=== PATIENT | male | born 1960 | race Caucasian/White ===

== ENCOUNTER 2018-08-30 11:36 | Inpatient (IN) | payer OTHER ==
[~2018-08-30] VITALS: Ht 177.8 cm; Wt 82.6 kg
[~2018-08-30 11:36] MED LIST: AMLO5TAB4 PO; FENO145T32 PO; FURO-93 PO; LISI-167 PO; LISI1TAB5 PO; OMEP-110 PO; POTA10TA6 PO
--- NOTE | 2018-08-30 12:28 | NUR ---
PT CANT SIT UP FOR LATERAL- TOO DIZZY/ PLS CHG TO PORTABLE 1 VIEW
[2018-08-30 12:29] LABS: BASOPHILS # (AUTO) 0.09 x10^3/uL (0-0.1); BASOPHILS % (AUTO) 3 % (0-1); EOSINOPHILS # (AUTO) 0.03 x10^3/uL (0-0.4); EOSINOPHILS % (AUTO) 1 % (1-7); LYMPHOCYTES # (AUTO) 0.78 x10^3/uL (1-3.4); LYMPHOCYTES % (AUTO) 26 % (22-44); MD NO; MEAN CORPUSCULAR HEMOGLOBIN 34.7 pg (27.5-34.5); MEAN CORPUSCULAR HGB CONC 34.1 g/dL (33.2-36.2); MEAN CORPUSCULAR VOLUME 101.9 fL (81-97); MEAN PLATELET VOLUME 7.6 fL (7.4-10.4); MONOCYTES # (AUTO) 0.49 x10^3/uL (0.2-0.8); MONOCYTES % (AUTO) 16 % (2-9); NEUTROPHILS # (AUTO) 1.62 x10^3/uL (1.8-6.8); NEUTROPHILS % (AUTO) 54 % (42-75); PLATELET COUNT 123 x10^3/uL (130-400); RED BLOOD COUNT 3.97 x10^6/uL (4.38-5.82); RED CELL DISTRIBUTION WIDTH 13.9 % (9.4-14.8)
--- NOTE | 2018-08-30 12:31 | NUR ---
PATIENT PRESENTS TO ED TODAY FOR DIZZINESS, MULTIPLE FALLS, AND LOW BP 69/22. COMPLIANT WITH BP MEDS, NO RECENT CHANGE TO MEDS. PATIENT ALSO C/O CP STARTING THIS AM. ERP AT BEDSIDE, PATIENT REPORTS DRINKING 2 BEERS DAILY, LAST DRINK LAST NIGHT (2 BEERS). BUILDING INSPECTOR ON PATIENT. AWAITING FURTHER ORDERS. CALL LIGHT WITHIN REACH, MOTHER AT BEDSIDE.
[2018-08-30 12:39] LABS: ALANINE AMINOTRANSFERASE 79 U/L (12-78); ALBUMIN 4.7 g/dL (3.4-5.0); ANION GAP 16 mmol/L (5-15); CALCIUM 9.3 mg/dL (8.5-10.1); CHLORIDE 88 mmol/L (98-107); CREATININE 1.61 mg/dL (0.7-1.3)
[2018-08-30 12:43] LABS: ALKALINE PHOSPHATASE 41 U/L (45-117); BILIRUBIN,TOTAL 1.1 mg/dL (0.2-1.0); TOTAL PROTEIN 8.6 g/dL (6.4-8.2); TROPONIN I < 0.015 ng/mL (0.000-0.045)
[2018-08-30] MEDS ORDERED: HIGH CHOL (12:43)
[2018-08-30] MEDS ORDERED: LISI1TAB7 PO (12:43)
[2018-08-30] MEDS ORDERED: THIAMINE 100MG TABLET ONE (12:53)
[2018-08-30] MEDS ORDERED: LORazepam 2 MG/ML, 1ML ONE ×2 (12:54→14:28)
[2018-08-30] MEDS ORDERED: THIAMINE 100MG TABLET PO ONE (13:00)
[2018-08-30] MEDS ORDERED: SODIUM CHLORIDE FLUSH 10ML SYR IVF ONE (13:00)
[2018-08-30] MEDS: LORazepam 2 MG/ML, 1ML IVPush PRN ×3 (13:02→20:55)
[2018-08-30] MEDS ORDERED: POTASSIUM CHLORIDE 20 MEQ TAB.ER.PRT ONE (13:04)
--- NOTE | 2018-08-30 13:13 | NUR ---
PATIENT ASSISTED WITH URINAL, UNABLE TO URINATE AT THIS TIME FOR UA.
[2018-08-30] MEDS ORDERED: POTASSIUM CHLORIDE 20 MEQ TAB.ER.PRT PO ONE (13:30)
--- NOTE | 2018-08-30 14:04 | NUR ---
UA COLLECTED AND SENT TO LAB, ADMIT ORDERS IN, AWAITING BED ASSIGNMENT. PATIENT RESTING IN [facility] COMFORTABLY, A+OX4, NO ADDITIONAL NEEDS AT THIS TIME.
[2018-08-30 14:19] LABS: MICROSCOPIC AUTO
[2018-08-30 14:24] LABS: CULTURE INDICATED? NO
--- NOTE | 2018-08-30 14:42 | NUR ---
PATIENT ASSISTED TO BEDSIDE COMMODE, 1 ASSIST, LARGE BROWN BM NOTED. PATIENT BACK TO BED, INCREASED ANXIETY/TREMORS, ATIVAN ADMINISTERED PER ORDER. NADN. PATIENT SITTING IN GURNEY. AWAITING BED ASSIGNMENT.
[2018-08-30] MEDS ORDERED: FUROSEMIDE 40 MG/4 ML ONE (15:30)
[2018-08-30] MEDS ORDERED: MAGNESIUM SULFATE PMX 4GM/100M 100 ML IV ONE (15:30)
[2018-08-30] MEDS ORDERED: ONDANSETRON 2MG/ML, 2ML IVPush PRN (15:30)
[2018-08-30] MEDS ORDERED: hydrALAzine 20 MG/ML, 1ML IVPush PRN (15:30)
[2018-08-30] MEDS ORDERED: FUROSEMIDE 40 MG/4 ML IV ONE (15:30)
[2018-08-30] MEDS ORDERED: morphine SULFATE 10 MG/ML, 1ML IVPush PRN (15:30)
[2018-08-30] MEDS: SODIUM CHLORIDE 0.9% 1,000 ML IV SCH (15:45)
--- NOTE | 2018-08-30 15:51 | NUR ---
TASK RN: DR CARREON ORDERED 40MG LASIX IVP. PTS K = 2.8, CXR INDICATES NO CARDIOPULMANRY DESEASE. DISCUSSED LASIX ORDER WITH . LASIX GIVEN TO HELP INCREASE SODIUM LEVEL WHICH IS CURRENTLY 128. PT WILL ALSO RECIEVE NS IV MAINTENANCE 100ML/HR. PER DR CARREON OK TO GIVE LASIX. PT MED ORDERED. IVF NS INFUSING AT 100ML/HR W/O DIFFICULTY.
--- NOTE | 2018-08-30 15:55 | NUR ---
CALL LIGHT W/I REACH, URINAL AT BEDSIDE. K+ AND MAGNESSIUM ORDER SENT TO PHARM.
[2018-08-30 16:17] LABS: MEAN CORPUSCULAR HEMOGLOBIN 35.1 pg (27.5-34.5); MEAN CORPUSCULAR HGB CONC 34.2 g/dL (33.2-36.2); MEAN CORPUSCULAR VOLUME 102.6 fL (81-97); MEAN PLATELET VOLUME 7.9 fL (7.4-10.4); PLATELET COUNT 116 x10^3/uL (130-400); RED BLOOD COUNT 3.95 x10^6/uL (4.38-5.82); RED CELL DISTRIBUTION WIDTH 13.7 % (9.4-14.8)
--- NOTE | 2018-08-30 16:22 | NUR ---
REPORT TO ASHLY VICK.
[2018-08-30 16:45] LABS: MD SCAN
[2018-08-30 16:46] LABS: BASOPHILS # (AUTO) 0.05 x10^3/uL (0-0.1); BASOPHILS % (AUTO) 1 % (0-1); EOSINOPHILS # (AUTO) 0.02 x10^3/uL (0-0.4); EOSINOPHILS % (AUTO) 1 % (1-7); LYMPHOCYTES # (AUTO) 0.67 x10^3/uL (1-3.4); LYMPHOCYTES % (AUTO) 20 % (22-44); MONOCYTES # (AUTO) 0.64 x10^3/uL (0.2-0.8); MONOCYTES % (AUTO) 19 % (2-9); NEUTROPHILS # (AUTO) 1.95 x10^3/uL (1.8-6.8); NEUTROPHILS % (AUTO) 59 % (42-75)
--- NOTE | 2018-08-30 16:47 | NUR ---
ROOM NOT READY AT THIS TIME. AWAITING ROOM TO BE READY PRIOR TO TRANSPORT UPSTAIRS.
[2018-08-30 17:39] VITALS: BP 131/89
[2018-08-30] MEDS: POTASSIUM CHLORIDE 40 MEQ in SODIUM CHLORIDE 0.9% 500 ML IV SCH ×2 (18:00→22:28)
[2018-08-30 18:04] VITALS: BP 130/87
[2018-08-30 19:01] LABS: TROPONIN I < 0.015 ng/mL (0.000-0.045)
[2018-08-30 19:25] VITALS: BP 127/85
[2018-08-30 19:28] VITALS: BP 127/88
[2018-08-30 19:30] VITALS: BP 95/67
[2018-08-30] MEDS: PANTOPRAZOLE 40 MG IV IVPush SCH (20:55)
[2018-08-31 01:03] LABS: TROPONIN I < 0.015 ng/mL (0.000-0.045)
[2018-08-31] MEDS: SODIUM CHLORIDE 0.9% 1,000 ML IV SCH ×2 (01:04→19:21)
[2018-08-31 03:55] VITALS: BP 144/95
[2018-08-31 05:25] LABS: ANION GAP 8 mmol/L (5-15); CALCIUM 8.6 mg/dL (8.5-10.1); CHLORIDE 97 mmol/L (98-107)
[2018-08-31 05:53] LABS: ALANINE AMINOTRANSFERASE 61 U/L (12-78); ALKALINE PHOSPHATASE 34 U/L (45-117); BILIRUBIN,TOTAL 1.3 mg/dL (0.2-1.0); CREATININE 1.44 mg/dL (0.7-1.3); TOTAL PROTEIN 7.4 g/dL (6.4-8.2)
[2018-08-31 07:20] VITALS: BP 149/90
[2018-08-31] MEDS: PANTOPRAZOLE 40 MG IV IVPush SCH ×2 (08:43→20:45)
[2018-08-31] MEDS ORDERED: POTASSIUM PHOSPHATE 22 MEQ in SODIUM CHLORIDE 0.9% 500 ML IV ONE (09:00)
[2018-08-31 13:30] VITALS: BP 161/99
[2018-08-31 20:31] VITALS: BP 146/99
[2018-09-01 02:13] VITALS: BP 149/99
[2018-09-01 02:36] LABS: CLOSTRIDIUM DIFFICILE ANTIGEN NEGATIVE; CLOSTRIDIUM DIFFICILE TOXIN NEGATIVE (Negative)
[2018-09-01] MEDS: SODIUM CHLORIDE 0.9% 1,000 ML IV SCH (05:16)
[2018-09-01 05:21] LABS: ANION GAP 9 mmol/L (5-15); CALCIUM 7.9 mg/dL (8.5-10.1); CHLORIDE 102 mmol/L (98-107)
[2018-09-01 05:23] LABS: CREATININE 1.11 mg/dL (0.7-1.3)
[2018-09-01] MEDS: PANTOPRAZOLE 40 MG IV IVPush SCH ×2 (08:17→20:35)
[2018-09-01] MEDS: LORazepam 2 MG/ML, 1ML IVPush PRN (08:17)
[2018-09-01 08:50] VITALS: BP 143/93
[2018-09-01] MEDS: MULTIVITAMIN 1 TABLET PO SCH (09:34)
[2018-09-01] MEDS: THIAMINE 100MG TABLET PO SCH (09:34)
[2018-09-01] MEDS: FOLIC ACID 1 MG TABLET PO SCH (09:34)
[2018-09-01] MEDS: MAGNESIUM OXIDE 400 MG TABLET PO SCH ×2 (09:34→20:35)
[2018-09-01 13:30] VITALS: BP 134/83
[2018-09-01] MEDS ORDERED: HALOPERIDOL 5 MG/ML IM PRN (18:00)
[2018-09-01 19:56] VITALS: BP 130/90
[2018-09-02 02:26] VITALS: BP 139/88
[2018-09-02 06:45] VITALS: BP 151/100
[2018-09-02] MEDS: PANTOPRAZOLE 40 MG IV IVPush SCH ×2 (09:21→21:27)
[2018-09-02] MEDS: MULTIVITAMIN 1 TABLET PO SCH (09:21)
[2018-09-02] MEDS: FOLIC ACID 1 MG TABLET PO SCH (09:21)
[2018-09-02] MEDS: MAGNESIUM OXIDE 400 MG TABLET PO SCH ×2 (09:22→21:27)
[2018-09-02] MEDS: THIAMINE 100MG TABLET PO SCH (09:22)
[2018-09-02 12:33] VITALS: BP 143/97
[2018-09-02] MEDS: LORazepam 2 MG/ML, 1ML IVPush PRN (14:46)
[2018-09-02] MEDS ORDERED: CHLORDIAZEPOXIDE 25 MG CAPSULE PO PRN (16:00)
[2018-09-02 18:45] VITALS: BP 155/80
[2018-09-02] MEDS: BACLOFEN 10 MG TABLET PO SCH (21:27)
[2018-09-03 01:03] VITALS: BP 151/106
[2018-09-03 03:09] VITALS: BP 142/102
[2018-09-03 05:37] VITALS: BP 129/80
[2018-09-03] MEDS ORDERED: CHLO25CA9 PO (07:26)
[2018-09-03] MEDS ORDERED: MULT1TAB60 PO (07:26)
[2018-09-03] MEDS ORDERED: OMEP-110 PO (07:26)
[2018-09-03] MEDS ORDERED: THIA100T67 PO (07:26)
[2018-09-03] MEDS ORDERED: FOLI-17 PO (07:26)
[2018-09-03] MEDS ORDERED: MAGN400T50 PO (07:26)
[2018-09-03] MEDS ORDERED: BACL-19 PO (07:26)
[2018-09-03 07:53] VITALS: BP 153/113
[2018-09-03] MEDS: FOLIC ACID 1 MG TABLET PO SCH (08:38)
[2018-09-03] MEDS: THIAMINE 100MG TABLET PO SCH (08:38)
[2018-09-03] MEDS: BACLOFEN 10 MG TABLET PO SCH (08:38)
[2018-09-03] MEDS: MAGNESIUM OXIDE 400 MG TABLET PO SCH (08:38)
[2018-09-03] MEDS: MULTIVITAMIN 1 TABLET PO SCH (08:38)
[2018-09-03] MEDS: PANTOPRAZOLE 40 MG IV IVPush SCH (08:38)
== END 2018-09-03 12:21 | disposition home or self-care (01) | DRG 432 ==
LOC: ED 13:54 → EDIP 13:55 → ED 14:32 → 4WST 17:28
PROVIDERS: ADMIT Internal Medicine; ATTEND Internal Medicine
DX: K70.10 Alcoholic hepatitis without ascites (principal); K85.90 Acute pancreatitis without necrosis or infection, unspecified; N17.0 Acute kidney failure with tubular necrosis; E87.1 Hypo-osmolality and hyponatremia; F10.239 Alcohol dependence with withdrawal, unspecified; E78.00 Pure hypercholesterolemia, unspecified; E78.5 Hyperlipidemia, unspecified; E83.39 Other disorders of phosphorus metabolism; E83.42 Hypomagnesemia; E86.0 Dehydration; E87.6 Hypokalemia; I10 Essential (primary) hypertension; Z88.2 Allergy status to sulfonamides; Z80.3 Family history of malignant neoplasm of breast; Z80.8 Family history of malignant neoplasm of other organs or systems; Z96.653 Presence of artificial knee joint, bilateral; R07.89 Other chest pain
CPT/HCPCS: 36415; 71045; 80048; 80053; 80074; 81001; 82607; 83690; 83735; 84100; 84443; 84484; 85025; 87324; 93005; 96374; 96375; G0378; J1940; J3480; C9113; J0360; J2060; J3475; J7030; J7040

== ENCOUNTER 2018-09-05 09:59 | Emergency (ER) | payer MEDICAID, OTHER ==
[~2018-09-05] VITALS: Ht 175.3 cm; Wt 88.6 kg
[~2018-09-05 09:59] MED LIST changes: +BACL-19 PO; +CHLO25CA9 PO; +FOLI-17 PO; +HIGH CHOL; +LISI1TAB7 PO; +MAGN400T50 PO; +MULT1TAB60 PO; +THIA100T67 PO
[2018-09-05 10:06] VITALS: BP 151/102
== END 2018-09-05 10:50 | disposition home or self-care (01) ==
LOC: ED 10:43
DX: F10.239 Alcohol dependence with withdrawal, unspecified (principal); I10 Essential (primary) hypertension; E78.00 Pure hypercholesterolemia, unspecified; Z88.2 Allergy status to sulfonamides
CPT/HCPCS: 99283